=== PATIENT | male | born 1995 | race Caucasian/White ===

== ENCOUNTER 2017-08-15 17:46 | Emergency (ER) | payer BC ==
[2017-08-15] MEDS ORDERED: NORMAL SALINE 1000 ML 1,000 ML IV ONE (18:46)
--- NOTE | 2017-08-15 18:47 | ER Document Report ---
ED Medical Screen (RME) - General Chief Complaint: Flu Symptoms Stated Complaint: FLU SYMPTOMS Time Seen by Provider: 08/15/17 18:45 Mode of Arrival: Ambulatory Information source: Patient, Relative TRAVEL OUTSIDE OF THE [place] IN LAST 30 DAYS: No - HPI Patient complains to provider of: flu-symptoms Onset: Yesterday - pt had labs and x-rays done earlier today at [facility] for flu-like symptoms and presents here for further evaluation - Related Data Allergies/Adverse Reactions: No Known Allergies Allergy (Verified 08/15/17 17:49) Physical Exam - Vital signs Vitals: Temp Pulse Resp BP Pulse Ox 98.7 F 79 16 152/82 H 98 08/15/17 18:00 08/15/17 18:00 08/15/17 18:00 08/15/17 18:00 08/15/17 18:00 Course - Vital Signs Vital signs: Temp Pulse Resp BP Pulse Ox 98.7 F 79 16 152/82 H 98 08/15/17 18:00 08/15/17 18:00 08/15/17 18:00 08/15/17 18:00 08/15/17 18:00
[2017-08-15 19:14] LABS: APPEARANCE,URINE CLEAR; BILIRUBIN,URINE NEGATIVE (NEGATIVE); COLOR,URINE YELLOW; GLUCOSE, URINE NEGATIVE (NEGATIVE); KETONES,URINE 20 mg/dL (NEGATIVE); LEUKOCYTE ESTERASE,URINE NEGATIVE (NEGATIVE); NITRITE,URINE NEGATIVE (NEGATIVE); PROTEIN,URINE NEGATIVE (NEGATIVE); URINE SPECIFIC GRAVITY 1.012
[2017-08-15 19:22] LABS: A TYPE INFLUENZA AG POSITIVE (NEGATIVE); B INFLUENZA AG POSITIVE (NEGATIVE)
--- NOTE | 2017-08-15 20:47 | ER Document Report ---
ED General - General Mode of Arrival: Ambulatory TRAVEL OUTSIDE OF THE [place] IN LAST 30 DAYS: No <KEY FREITAS - Last Filed: 08/16/17 01:00> <LAURE LUO - Last Filed: 08/16/17 03:29> - General Chief Complaint: Flu Symptoms Stated Complaint: FLU SYMPTOMS Time Seen by Provider: 08/15/17 18:45 Notes: Patient is a 21 year old male presenting to the emergency department complaining of flu like symptoms onset 3 days ago. Patient states he originally went to [facility] and told to come to the emergency department for further evaluation. Patient associated symptoms include fever (102) cough and body aches. (KEY FREITAS) - Related Data Allergies/Adverse Reactions: No Known Allergies Allergy (Verified 08/15/17 17:49) Past Medical History - General Information source: Patient, Relative - Social History Smoking Status: Current Every Day Smoker Frequency of alcohol use: None Drug Abuse: None Patient has suicidal ideation: No Patient has homicidal ideation: No <KEY FREITAS - Last Filed: 08/16/17 01:00> - Social History Smoking Status: Current Every Day Smoker Frequency of alcohol use: None Drug Abuse: None Family History: Reviewed & Not Pertinent - Medical History Medical History: Negative Surgical Hx: Negative <LAURE LUO - Last Filed: 08/16/17 03:29> Review of Systems - Review of Systems Constitutional: See HPI, Fever EENT: No symptoms reported Cardiovascular: No symptoms reported Respiratory: See HPI, Cough Gastrointestinal: No symptoms reported Genitourinary: No symptoms reported Male Genitourinary: No symptoms reported Musculoskeletal: See HPI Skin: No symptoms reported Hematologic/Lymphatic: No symptoms reported Neurological/Psychological: No symptoms reported -: Yes All other systems reviewed and negative <KEY FREITAS - Last Filed: 08/16/17 01:00> Physical Exam <KEY FREITAS - Last Filed: 08/16/17 01:00> <LAURE LUO - Last Filed: 08/16/17 03:29> - Vital signs Vitals: Temp Pulse Resp BP Pulse Ox 98.7 F 79 16 152/82 H 98 08/15/17 18:00 08/15/17 18:00 08/15/17 18:00 08/15/17 18:00 08/15/17 18:00 - Notes Notes: GENERAL: Alert, interacts well. No acute distress. Febrile. HEAD: Normocephalic, atraumatic. EYES: Appear normal. Pupils equal, round, and reactive to light. ENT: Dry mucus membranes, tongue midline. NECK: Full range of motion. Supple. Trachea midline. LUNGS: Clear to auscultation bilaterally, no wheezes, rales, or rhonchi. No respiratory distress. HEART:Tachycardic. No murmurs, gallops, or rubs. ABDOMEN: Soft, non-tender. Non-distended. Normal bowel sounds. EXTREMITIES: Moves all 4 extremities spontaneously. Normal strength. No edema. NEUROLOGICAL: Alert and oriented x3. Normal speech. No focal neurological deficits. PSYCH: Normal affect, normal mood. SKIN: Warm, dry, normal turgor. No rashes or lesions noted. (KEY FREITAS) Course <KEY FREITAS - Last Filed: 08/16/17 01:00> - Diagnostic Test Radiology reviewed: Reports reviewed <LAURE LUO - Last Filed: 08/16/17 03:29> - Re-evaluation Re-evalutation: Patient is a 21-year-old male who comes in with cough, congestion, and fever at home. Patient was seen and had x-rays and blood work ordered. Sent to the emergency department because of concern for epiglottitis. Patient is not having any trouble breathing, swallowing. He is not in any tripod position. He has no stridor. There is absolutely no concern on physical exam for epiglottitis. The patient is however positive for influenza A and influenza B. Patient has a Tamiflu prescription waiting for him. He has been given IV fluids for what appears to be mild dehydration. Fever has been controlled with Tylenol and ibuprofen. will be given a prescription for prophylactic Tamiflu and also instructed to see if pediatrics will prescribe medication for their children. Patient is clinically stable at the time of discharge. Lungs are clear. No respiratory distress. No findings on chest x-ray to indicate pneumonia. Return immediately if any worsening or concerning symptoms. Stable at this time for discharge. (LAURE LUO) - Vital Signs Vital signs: Temp Pulse Resp BP Pulse Ox 100.1 F 79 18 146/90 H 98 08/15/17 22:22 08/15/17 18:00 08/15/17 22:22 08/15/17 22:22 08/15/17 22:22 - Laboratory Laboratory results interpreted by me: 08/15/17 17:41 Urine Ketones 20 H Urine Blood SMALL H Urine Urobilinogen 2.0 H Discharge <KEY FREITAS - Last Filed: 08/16/17 01:00> <LAURE LUO - Last Filed: 08/16/17 03:29> - Discharge Clinical Impression: Influenza, Dehydration Condition: Stable Disposition: HOME, SELF-CARE Instructions: Fever ([facility]), Influenza ([facility]) Prescriptions: Ondansetron [Zofran Odt 4 mg Tablet] 1 tab PO Q6HP PRN #20 tab.rapdis PRN Reason: For Nausea/Vomiting Forms: Return to Work Scribe Attestation: 08/16/17 03:28 I personally performed the services described in the documentation, reviewed and edited the documentation which was dictated to the scribe in my presence, and it accurately records my words and actions. (LAURE LUO) Scribe Documentation - Scribe Written by Thania:: Thania Brennan, 08/15/2017 21:02 acting as scribe for :: Bakari <KEY FREITAS - Last Filed: 08/16/17 01:00>
[2017-08-15] MEDS ORDERED: IBUPROFEN 800 MG TABLET PO ONE (22:07)
[2017-08-15 22:39] VITALS: BP 146/90
== END 2017-08-15 22:22 | disposition home or self-care (01) ==
LOC: ER 17:46
DX: J10.1 Influenza due to other identified influenza virus with other respiratory manifestations (principal); E86.0 Dehydration; R50.9 Fever, unspecified; R05 Cough; R52 Pain, unspecified; F17.200 Nicotine dependence, unspecified, uncomplicated
CPT/HCPCS: 99283; 96360; 81001; 87804; J7030

== ENCOUNTER → 2017-08-15 | Outpatient (CLI) | payer BC ==
[2017-08-15 17:24] LABS: ABSOLUTE LYMPHOCYTES (AUTO) 0.4 10^3/uL (0.5-4.7); ABSOLUTE MONOCYTES (AUTO) 0.8 10^3/uL (0.1-1.4); ABSOLUTE NEUT (AUTO) 3.8 10^3/uL (1.7-8.2); BASOPHILS % (AUTO) 0.5 % (0-2); EOSINOPHILS % (AUTO) 0.2 % (0-6); HEMATOCRIT 40.1 % (37.9-51.0); HEMOGLOBIN 13.8 g/dL (13.5-17.0); LYMPHOCYTES % (AUTO) 7.5 % (13-45); MEAN CORPUSCULAR HEMOGLOBIN 29.3 pg (27.0-33.4); MEAN CORPUSCULAR HGB CONC 34.5 g/dL (32.0-36.0); MEAN CORPUSCULAR VOLUME 85 fl (80-97); MONOCYTES % (AUTO) 16.2 % (3-13); PLATELET COUNT 134 10^3/uL (150-450); RED BLOOD COUNT 4.73 10^6/uL (4.35-5.55); RED CELL DISTRIBUTION WIDTH 12.9 % (11.5-14.0); SEGMENTED NEUTROPHILS % (AUTO) 75.6 % (42-78); TOTAL CELLS COUNTED % (AUTO) 100 %
--- NOTE | 2017-08-15 17:33 | RADIOLOGY REPORT (SQ) ---
EXAM DESCRIPTION: CHEST PA/LATERAL COMPLETED DATE/TIME: 08/15/2017 5:20 pm REASON FOR STUDY: COUGH COMPARISON: None. EXAM PARAMETERS: NUMBER OF VIEWS: two views TECHNIQUE: Digital Frontal and Lateral radiographic views of the chest acquired. RADIATION DOSE: NA LIMITATIONS: none FINDINGS: LUNGS AND PLEURA: No opacities, masses or pneumothorax. No pleural effusion. MEDIASTINUM AND HILAR STRUCTURES: No masses or contour abnormalities. HEART AND VASCULAR STRUCTURES: Heart normal size. No evidence for failure. BONES: No acute findings. HARDWARE: None in the chest. OTHER: No other significant finding. IMPRESSION: NO SIGNIFICANT RADIOGRAPHIC FINDING IN THE CHEST. TECHNICAL DOCUMENTATION: JOB ID: [id number] [employer]- All Rights Reserved
--- NOTE | 2017-08-15 17:45 | RADIOLOGY REPORT (SQ) ---
EXAM DESCRIPTION: SOFT TISSUE NECK COMPLETED DATE/TIME: 08/15/2017 5:20 pm REASON FOR STUDY: COUGH R05 COUGH COMPARISON: None. NUMBER OF VIEWS: Two views. TECHNIQUE: AP and lateral radiographic image of the soft tissues of the neck. LIMITATIONS: None. FINDINGS: EPIGLOTTIS: Abnormal, thickened appearance of the aryepiglottic folds on lateral view rais es a question of epiglottitis. This report was discussed with Dr. Azar PREVERTEBRAL SOFT TISSUES: Normal. No soft tissue swelling. SUBGLOTTIC AREA: Normal. No narrowing. RETROPHARYNGEAL SPACE: Normal. No soft tissue masses. BONES: No significant findings. LUNG APICES: Normal. OTHER: Micro plates are seen along the right and left frontal and temporal cranium IMPRESSION: Thickened aryepiglottic folds, worrisome for supraglottic laryngeal mucosal swelling. E piglottitis could not be excluded. Findings discussed with Dr. Azar TECHNICAL DOCUMENTATION: JOB ID: [id number] [employer]- All Rights Reserved
[2017-08-18 21:08] LABS: INFLUENZA A AB (SERUM) CF 1:16 (Neg:<1:8)
== END ==
LOC: OD 16:36
PROVIDERS: ATTEND Internal Medicine Pulmonary Disease
DX: R05 Cough (principal)
CPT/HCPCS: 36415; 70360; 71046; 85025; 86710; 87040; 87086